=== PATIENT | female | born 1985 | race Two or more races ===

== ENCOUNTER 2019-11-17 05:15 | Inpatient (IN) | payer OTHER ==
[~2019-11-17] VITALS: Ht 165.1 cm; Wt 2400.0 kg
== END 2019-11-20 18:48 | disposition home or self-care (01) | DRG 788 ==
LOC: LDR 05:15 → O/R 11:53 → OB/GYN 13:32
PROVIDERS: ADMIT Obstetrics & Gynecology
PROC: 4A1HXCZ Monitoring of Products of Conception, Cardiac Rate, External Approach (ICD-10-PCS; 2019-11-17)
PROC: BY4GZZZ Ultrasonography of Third Trimester, Multiple Gestation (ICD-10-PCS; 2019-11-17)
PROC: 10D00Z1 Extraction of Products of Conception, Low, Open Approach (ICD-10-PCS; principal; 2019-11-17 08:00)
DX: O82 Encounter for cesarean delivery without indication (principal); O32.1XX0 Maternal care for breech presentation, not applicable or unspecified; O30.043 Twin pregnancy, dichorionic/diamniotic, third trimester; Z3A.33 33 weeks gestation of pregnancy; Z37.2 Twins, both liveborn